=== PATIENT | female | born 1960 | race Caucasian/White ===

== ENCOUNTER → 2018-03-17 | Outpatient (CLI) | payer OTHER ==
[~2018-03-17] MED LIST: ALBUTEROL2.5 MG/0.5 INH; ALLERGY10 MG PO; ALPRAZOLAM0.5 MG PO; ASPRIN/BUTALBIT1 TAB; AUGMENTIN 875 M1 TAB PO; BAYER ASPIRIN325 MG PO; CALCIUM500 M1 PO; CALCIUM500 MG PO; CLARITIN10 MG PO; CRESTOR10 M1 PO; DIFLUCAN150 MG PO; DUONEB 3 MG/3 ML3 M1 INH; ELMIRON100 MG PO; Ecotrin325 MG PO; FLAGYL250 MG PO; FLOVENT DI250 MCG/Ac IH; FOSAMAX70 M1 PO; HYDROCODONE BIT1 T12 PO; HYDROCODONE/ACE1 TA9 PO; IMDUR ER30 MG PO; IMDUR SA30 MG PO; KENALOG 0.1%80 GM T; KENALOG0.11 TP; LEVOTHYROXINE0.1 M1 PO; LIPITOR; LIPITOR40 MG PO; LISINOPRIL5 MG PO; LOMOTIL 0.025 M1 TAB PO; LOPRESSOR25 MG PO; Lopressor25 MG PO; MEDROL DOSEPAK4 MG PO; MOTRIN600 MG PO; MOTRIN800 MG PO; MULTIPLE VITAMI1 T22 PO; NAPROSYN500 MG PO; NEURONTIN300 MG PO; NORCO 325 MG-51 TAB PO; PRAVACHOL10 MG PO; PRAVACHOL80 M1 PO; PRINIVIL5 MG PO; PROVENTIL0.09 MG/AC IH; SYNTHROID; SYNTHROID,LEV100 MCG PO; Synthroid,Levo50 MCG PO; TEMOVATE0.052 T; TRAMADOL HCL50 MG PO; TRIMOX500 MG PO; VENTOLIN H0.09 MG/AC INH; VICODIN 5/500 505 MG PO; VITAMIN B-12100 MCG PO; VITAMIN D-32000 UNI1 PO; VITAMIN D400 I1 PO; ZETIA10 MG PO; ZITHROMAX Z PA250 MG PO; Zofran4 MG PO; [UNRECOGNIZED DRUG - OTHER]
== END | disposition home or self-care (01) ==
LOC: US 03-10 04:09
DX: M79.605 Pain in left leg (principal); M79.604 Pain in right leg; I10 Essential (primary) hypertension; I70.213 Atherosclerosis of native arteries of extremities with intermittent claudication, bilateral legs

== ENCOUNTER 2019-05-31 15:19 | Emergency (ER) | payer OTHER ==
[~2019-05-31] VITALS: Ht 165.1 cm; Wt 83.0 kg
[2019-05-31 16:10] LABS: BILIRUBIN NEGATIVE (NEGATIVE); BLOOD NEGATIVE (NEGATIVE); CLARITY CLEAR (CLEAR); COLOR YELLOW (YELLOW); GLUCOSE NEGATIVE (NEGATIVE); KETONE NEGATIVE (NEGATIVE); LEUKO ESTERASE NEGATIVE (NEGATIVE); NITRITE NEGATIVE (NEGATIVE); SPECIFIC GRAVITY >= 1.030 (1.005-1.030); UROBILINOGEN 0.2 E.U./dl (0.2-1.0)
[2019-05-31 16:11] LABS: BASO % 0.6 % (0.0-1.0); EOS # 0.1 10*3/uL (0.0-0.4); EOS % 1.7 % (1.0-4.0); HEMATOCRIT 40.7 % (37.0-47.0); HEMOGLOBIN 13.8 g/dl (12.0-16.0); LYMPH # 1.2 10*3/uL (1.3-4.4); LYMPH % 18.3 % (27.0-41.0); MEAN CELL VOLUME 98.1 fl (81.0-99.0); MEAN CORPUSCULAR HGB 33.3 pg (27.0-31.0); MEAN CORPUSCULAR HGB CONC 33.9 g/dl (33.0-37.0); MEAN PLATELET VOLUME 9.2 fl (9.6-12.3); MONO # 0.8 10*3/uL (0.1-1.0); MONO % 11.5 % (3.0-9.0); NEUT # 4.4 10*3/uL (2.3-7.9); NEUT % 67.4 % (47.0-73.0); PLATELET COUNT AUTOMATED 202 10*3/uL (130-400); RED BLOOD COUNT 4.15 10*6/uL (4.10-5.10); WHITE BLOOD COUNT 6.5 10*3/uL (4.8-10.8)
[2019-05-31 16:18] LABS: BACTERIA TRACE; WBC 0-2 wbc/hpf (0-5)
[2019-05-31 16:22] LABS: INTERNATIONAL NORM RATIO 0.9 (2.0-3.5)
[2019-05-31 16:30] LABS: ALBUMIN 3.6 gm/dl (3.1-4.5); ALKALINE PHOSPHATASE 81 U/L (45-117); BUN 13 mg/dl (7-24); CHLORIDE 109 mmol/L (98-107); CREATININE 0.86 mg/dL (0.55-1.02); POTASSIUM 4.4 mmol/L (3.5-5.1); SGOT/AST 35 IU/L (3-35); SGPT/ALT 31 U/L (12-78); SODIUM 141 mmol/L (136-145); TOTAL PROTEIN 7.3 gm/dL (6.4-8.2)
[2019-05-31 16:37] LABS: TROPONIN I < 0.015 ng/ml (<0.045)
[2019-05-31 17:43] VITALS: BP 126/82
== END 2019-05-31 17:49 | disposition home or self-care (01) ==
LOC: ED 15:19
PROVIDERS: Physician Assistant
DX: R20.2 Paresthesia of skin (principal); R20.0 Anesthesia of skin; J44.9 Chronic obstructive pulmonary disease, unspecified; R79.1 Abnormal coagulation profile; F17.200 Nicotine dependence, unspecified, uncomplicated; Z79.899 Other long term (current) drug therapy; Z79.82 Long term (current) use of aspirin

== ENCOUNTER 2019-08-19 15:46 | Inpatient (IN) | payer OTHER ==
[~2019-08-19] VITALS: Ht 165.1 cm; Wt 82.7 kg
[2019-08-19] MEDS ORDERED: CYCLOBENZAPRINE10 MG PO (15:50)
[2019-08-19] MEDS ORDERED: ALPRAZOLAM0.5 M3 PO (15:50)
[2019-08-19] MEDS ORDERED: B121000 MCG/1 IM (15:51)
[2019-08-19 15:53] VITALS: BP 118/78
[2019-08-19 16:35] LABS: BASO % 0.5 % (0.0-1.0); EOS # 0.1 10*3/uL (0.0-0.4); EOS % 1.4 % (1.0-4.0); HEMATOCRIT 41.1 % (37.0-47.0); LYMPH # 0.9 10*3/uL (1.3-4.4); LYMPH % 13.2 % (27.0-41.0); MEAN CELL VOLUME 97.4 fl (81.0-99.0); MEAN CORPUSCULAR HGB 33.2 pg (27.0-31.0); MEAN CORPUSCULAR HGB CONC 34.1 g/dl (33.0-37.0); MEAN PLATELET VOLUME 9.4 fl (9.6-12.3); MONO % 15.8 % (3.0-9.0); NEUT # 4.5 10*3/uL (2.3-7.9); NEUT % 68.8 % (47.0-73.0); PLATELET COUNT AUTOMATED 180 10*3/uL (130-400); RED BLOOD COUNT 4.22 10*6/uL (4.10-5.10); RED CELL DISTRI WIDTH 12.5 % (0-14.5); WHITE BLOOD COUNT 6.5 10*3/uL (4.8-10.8)
[2019-08-19 16:46] LABS: ACT PARTIAL THROMBO TIME 23.8 SECONDS (20.0-32.1); INTERNATIONAL NORM RATIO 0.9 (2.0-3.5)
[2019-08-19 17:07] LABS: ALBUMIN 3.4 gm/dl (3.1-4.5); ALKALINE PHOSPHATASE 96 U/L (45-117); BUN 3 mg/dl (7-24); CHLORIDE 109 mmol/L (98-107); CREATININE 0.72 mg/dL (0.55-1.02); POTASSIUM 3.4 mmol/L (3.5-5.1); SGOT/AST 35 IU/L (3-35); SGPT/ALT 27 U/L (12-78); SODIUM 141 mmol/L (136-145); TOTAL PROTEIN 7.6 gm/dL (6.4-8.2)
[2019-08-19 17:08] LABS: TROPONIN I < 0.015 ng/ml (<0.045)
[2019-08-19] MEDS ORDERED: PROVENTIL HFA6.7 GM INH (17:19)
[2019-08-19] MEDS ORDERED: SPIRIVA -- 3018 MCG INH (17:19)
[2019-08-19] MEDS ORDERED: PREDNISONE50 MG PO (17:19)
[2019-08-19] MEDS ORDERED: AVPAK AZITHROM250 MG PO (17:19)
--- NOTE | 2019-08-19 18:25 | NUR ---
A 59, admitted to , under the services of PATRICIA Dozier DO with a diagnosis of COPD EXACERBATION. Chief complaint is SOB, WHEEZING. Patient arrived via ambulatory from ER. Monitor applied. Initial assessment completed. Vital signs taken and recorded. PATRICIA DOZIER DO notified of admission to the unit. Orders received. See assessment for past medical history, medications and allergies. Patient and/or family oriented to unit. [facility] visitation policy reviewed. Clothing/patient valuable form completed. HARINDER BARRON
--- NOTE | 2019-08-19 18:58 | NUR ---
CALLED DR. HARTLEY AWARE PT MEDICATIONS ARE VERIFIED AND NEED ORDERED.
[2019-08-19 20:00] VITALS: BP 121/83
[2019-08-20] VITALS (8 sets, daily range): BP systolic 80–122; BP diastolic 42–86
[2019-08-20 06:34] LABS: HEMATOCRIT 39.9 % (37.0-47.0); HEMOGLOBIN 13.3 g/dl (12.0-16.0); LYMPH # 0.5 10*3/uL (1.3-4.4); LYMPH % 10.3 % (27.0-41.0); MEAN CELL VOLUME 98.8 fl (81.0-99.0); MEAN CORPUSCULAR HGB 32.9 pg (27.0-31.0); MEAN CORPUSCULAR HGB CONC 33.3 g/dl (33.0-37.0); MONO # 0.2 10*3/uL (0.1-1.0); MONO % 2.9 % (3.0-9.0); NEUT # 4.5 10*3/uL (2.3-7.9); NEUT % 86.2 % (47.0-73.0); PLATELET COUNT AUTOMATED 196 10*3/uL (130-400); RED BLOOD COUNT 4.04 10*6/uL (4.10-5.10); RED CELL DISTRI WIDTH 12.4 % (0-14.5); WHITE BLOOD COUNT 5.2 10*3/uL (4.8-10.8)
[2019-08-20 06:41] LABS: ALBUMIN 3.1 gm/dl (3.1-4.5); ALKALINE PHOSPHATASE 83 U/L (45-117); BUN 6 mg/dl (7-24); CHLORIDE 112 mmol/L (98-107); CHOLESTEROL 181 mg/dL (<200); CREATININE 0.67 mg/dL (0.55-1.02); HDL CHOLESTEROL 54 mg/dl (40-60); LDL CHOLESTEROL 111 mg/dL (9-159); PHOSPHOROUS 2.2 mg/dL (2.5-4.9); POTASSIUM 3.6 mmol/L (3.5-5.1); SGOT/AST 23 IU/L (3-35); SGPT/ALT 26 U/L (12-78); SODIUM 141 mmol/L (136-145); TOTAL PROTEIN 7.2 gm/dL (6.4-8.2); TRIGLYCERIDES 80 mg/dl (<150); VLDL CHOLESTEROL 16 mg/dL (6-40)
[2019-08-20 06:46] LABS: FREE T4 1.06 ng/dl (0.76-1.46)
[2019-08-20 07:26] LABS: VITAMIN D, 25-HYDROXY 32.8 ng/mL (30-100)
--- NOTE | 2019-08-20 07:56 | NUR ---
PT RESTING IN BED, RECIEVING BREATHING TREATMENT. MORNING ASSESSMENT COMPLETE. NO VOICED COMPLAINTS AT THIS TIME. DAVID DICKINSON BLANCA
--- NOTE | 2019-08-20 09:00 | NUR ---
Commercial Subcontractor in to talk to patient. Patient states lives at home with mother and granddon. There are few steps in the home. Physician: smita laurent [facility]acy: [facility] Home health services: none Patient's level of ADLs: INDEPENDENT Patient has working utilities: all working DME: none Follow-up physician's appointment after d/c: will be made by hospitalist nurse director upon discharge Does patient want to access PORTAL?: no Discharge plan discussed with patient, she states she lives at home with her mom and grandson, she is indepenendent in adls and ambulation, drives, she states she will return home when medically stable and denies any home needs. JOI GRIFFIN
--- NOTE | 2019-08-20 10:06 | NUR ---
PT SITTING UP IN BED EATING BREAKFAST. PT BEING MOVED TO 5TH FLOOR VIA WHEELCHAIR ACCOMPANIED BY SN. DAVID DIXON
--- NOTE | 2019-08-20 10:09 | NUR ---
TRANSFERRED TO [facility]'2
--- NOTE | 2019-08-20 11:29 | NUR ---
ON FLOOR AND NOTIFIED OF CONSULT.
--- NOTE | 2019-08-20 17:51 | NUR ---
PATIENTS PULSE OX RANGING BETWEEN 89-90% ON 4LNC. LUNGS DIMINISHED T/O. THIS NURSE SPOKE WITH RESPIRATORY THERAPIST. 02 INCREASED TO 5LNC. POX 90-92%. PATIENT ENCOURAGED TO UTILIZE INCENTIVE SPIROMETER. WILL CONTINUE TO MONITOR. NOTIED AT THIS TIME. NO NEW ORDERS.
--- NOTE | 2019-08-20 20:23 | NUR ---
PT SAT IS 89% ON 5L NC. PLACED ON 8L HFNC AND SAT IS NOW 92% WILL CONTINUE TO MONITOR SpO2.
--- NOTE | 2019-08-20 20:27 | NUR ---
DR BARBOUR MADE AWARE OF BLOOD PRESSURE 80/42 AND PULSE OX 90% ON HIGH FLOW 8L. STATES TO HOLD CARDIAC MEDS TONIHGT, BOLUS 500CC NS AND RECHECK BLOOD PRESSURE AT 9. PATIENT DENIES DIZZINESS OR LIGHT HEADEDNESS
--- NOTE | 2019-08-20 21:25 | NUR ---
DR BARBOUR AWARE OF REPEAT BLOOD PRESSURE 86/52
--- NOTE | 2019-08-20 22:26 | NUR ---
DR BARBOUR AWARE OF BLOOD PRESSURE 90/50. STATES TO HOLD THE SCHEDULED XANAX AND FLEXERIL FOR ANOTHER HOUR UNTIL BLOOD PRESSURE IS REASSESSED
[2019-08-21] VITALS: BP 106/63
--- NOTE | 2019-08-21 03:35 | NUR ---
Patient resting quietly with no c/o discomfort. Respirations easy and regular. Vital signs stable. No overt distress. WINSTON NEGRO
[2019-08-21 08:00] VITALS: BP 129/80
--- NOTE | 2019-08-21 09:00 | NUR ---
case management visits with patient, patient states she will return home when medically stable, patient continues to receive iv antibiotics, iv steroids and oxygen was increased yesterday to high flow at 8l. case management will continue to follow
--- NOTE | 2019-08-21 10:58 | NUR ---
RAIL LOADER received voicemail from [facility] [employer] Genia -[phone]. RAIL LOADER returned call to [facility] voicemail and left a message. -KRISTOPHER Dupree
[2019-08-21 12:00] VITALS: BP 124/72
[2019-08-21 14:14] LABS: BASO % 0.1 % (0.0-1.0); HEMOGLOBIN 12.2 g/dl (12.0-16.0); LYMPH # 0.7 10*3/uL (1.3-4.4); LYMPH % 5.1 % (27.0-41.0); MEAN PLATELET VOLUME 9.6 fl (9.6-12.3); MONO # 1.2 10*3/uL (0.1-1.0); NEUT # 11.5 10*3/uL (2.3-7.9); NEUT % 84.9 % (47.0-73.0); PLATELET COUNT AUTOMATED 249 10*3/uL (130-400); RED CELL DISTRI WIDTH 13.1 % (0-14.5); WHITE BLOOD COUNT 13.6 10*3/uL (4.8-10.8)
[2019-08-21 14:29] LABS: ALKALINE PHOSPHATASE 70 U/L (45-117); BUN 11 mg/dl (7-24); CHLORIDE 111 mmol/L (98-107); CREATININE 0.69 mg/dL (0.55-1.02); POTASSIUM 3.6 mmol/L (3.5-5.1); SGOT/AST 21 IU/L (3-35); SGPT/ALT 24 U/L (12-78); SODIUM 142 mmol/L (136-145); TOTAL PROTEIN 6.9 gm/dL (6.4-8.2)
[2019-08-21 16:00] VITALS: BP 109/72
[2019-08-21 20:00] VITALS: BP 106/56
--- NOTE | 2019-08-21 21:49 | NUR ---
SPOKE WITH DR JOHNSON REGARDING PTS BEDTIME BLOOD PRESSURE MEDICATIONS. BP 100/60 MANUALLY. STATES TO HOLD THE LISINOPRIL AND ADMINISTER METOPROLOL ORDERED HEART RATE IS 106.
[2019-08-22] VITALS: BP 122/83
--- NOTE | 2019-08-22 03:57 | NUR ---
24 HR chart check completed.
--- NOTE | 2019-08-22 06:39 | NUR ---
IN SHIFT REPORT IT WAS BROUGHT TO MY ATTENTION PATIENT HAD REFUSED TO HAVE AN ARTERIAL BLOOD GAS DRAWN. NO OTHER INFORMATION ON THE SITUATION.
--- NOTE | 2019-08-22 07:00 | NUR ---
PATIENT ASKED ABOUT ARTERIAL BLOOD GAS AGAIN THIS MORNING. SHE IS STILL REFUSING TO HAVE IT DRAWN. " MY OXYGEN HAS BEEN 93, SO I DONT NEED IT. THEY HURT REALLY BAD."
[2019-08-22 08:00] VITALS: BP 141/85
--- NOTE | 2019-08-22 09:00 | NUR ---
case management visits with patient, she denies any home needs at this time, she continues on nasla o2 at 5l. current treatment of oxygen, iv antibiotics and steroids continues, case management will follow
[2019-08-22 12:00] VITALS: BP 128/82
[2019-08-22 16:00] VITALS: BP 109/75
[2019-08-22 20:00] VITALS: BP 115/69
--- NOTE | 2019-08-22 20:05 | NUR ---
SURGERY PACKET COMPLETED AND ON CHART.
--- NOTE | 2019-08-22 21:45 | NUR ---
SPOKE WITH DR BARBOUR, PER HIS ORDER WILL HOLD LISINOPRIL AND GIVE LOPRESSOR ORDERED. BP 110/68 MANUALLY AND PULSE 105.
[2019-08-23] VITALS (9 sets, daily range): BP systolic 119–150; BP diastolic 73–93
[2019-08-23 00:09] LABS: ADENOVIRUS Negative (Negative); INFLUENZA A Negative (Negative); INFLUENZA B Negative (Negative); METAPNEUMOVIRUS Negative (Negative); PARAINFLUENZA 1 Negative (Negative); PARAINFLUENZA 2 Negative (Negative); PARAINFLUENZA 3 Negative (Negative); RHINOVIRUS Negative (Negative); RSV A Negative (Negative); RSV B Negative (Negative)
--- NOTE | 2019-08-23 08:24 | NUR ---
PT RESTING IN BED. NO DISTRESS NOTED. WILL MONITOR
--- NOTE | 2019-08-23 09:00 | NUR ---
case management attempted to visit with patient, she is out of room for procedure, case management will follow
--- NOTE | 2019-08-23 20:00 | NUR ---
AMBULATING HALLWAY WITH RESPIRATORY
--- NOTE | 2019-08-23 20:08 | NUR ---
Patient does not qualify for home oxygen use. Pre-Ambulation: SPO2 - 97% on 6L, HR - 120, BP - 120/76 Ambulation : SPO2 91%-95%, HR 120-133 Post-Ambulation: SPO2 91% on RA, HR 126, BP 132/90
--- NOTE | 2019-08-23 21:00 | NUR ---
RESTING IN BED WATCHING TV WITH NO DISTRESS NOTED. RESPIRATIONS EASY. LUNGS DIMINISHED WITH I&E WHEEZES. PULSE OX 95% 5L, O2 REMOVED BY RESP - WILL RE-EVAL. CLAIMS COUGH PROD FOR YELLOW. CALL LIGHT WITHIN REACH. NO VOICED COMPLAINTS
[2019-08-24] VITALS: BP 127/93; BP 128/82
--- NOTE | 2019-08-24 | NUR ---
REMAINS AWAKE. RESPIRATIONS EASY. VSS. PULSE OX 92% RA. CALL LIGHT WITHIN REACH. NO VOICED COMPLAINTS
[2019-08-24] MEDS ORDERED: LEVOTHYROXINE175 MCG PO (01:25)
--- NOTE | 2019-08-24 01:40 | NUR ---
24 HR chart check completed.
--- NOTE | 2019-08-24 06:00 | NUR ---
RESTED THROUGHOUT NIGHT WITH NO ACUTE DISTRESS NOTED. RESPIRATIONS EASY. AWAKE, SITTING UP IN BED. CALL LIGHT WITHI REACH. NO VOICED COMPLAINTS THIS SHIFT
--- NOTE | 2019-08-24 07:49 | NUR ---
PT RESTING IN BED/ NO DISTRESS NOTED./ WILL MONITOR
[2019-08-24 08:00] VITALS: BP 144/91
[2019-08-24 12:00] VITALS: BP 116/82
--- NOTE | 2019-08-24 13:20 | NUR ---
dr viramontes notified of dr beena marc with pt being dc today
[2019-08-24] MEDS ORDERED: DOXYCYCLINE100 M3 PO (14:08)
[2019-08-24] MEDS ORDERED: PREDNISONE10 MG PO (14:08)
[2019-08-24] MEDS ORDERED: FLUCONAZOLE100 MG PO (14:08)
--- NOTE | 2019-08-24 14:11 | NUR ---
Answered questions with Genia patient's [facility] rn case mgr regarding discharge plans.
--- NOTE | 2019-08-24 15:15 | NUR ---
Discharge instructions reviewed with patient/family. Patient receptive and verbalizes understanding. Follow-up care arranged. Written instructions given to patient/family. GALILEA MATIAS
[2019-08-24 17:06] LABS: ACID FAST SPEC PROCESSING Concentration (.)
== END 2019-08-24 15:15 | disposition home or self-care (01) | DRG 871 ==
LOC: ED 15:46 → EDHOLD 17:35 → 5E 17:35 → 4E 18:16 → 5E 08-20 10:07
PROVIDERS: Emergency Medicine; Internal Medicine; Internal Medicine Critical Care Medicine; ADMIT Internal Medicine
PROC: 0BC18ZZ Extirpation of Matter from Trachea, Via Natural or Artificial Opening Endoscopic (ICD-10-PCS; principal; 2019-08-23)
PROC: 0BC48ZZ Extirpation of Matter from Right Upper Lobe Bronchus, Via Natural or Artificial Opening Endoscopic (ICD-10-PCS; principal; 2019-08-23)
PROC: 0BC88ZZ Extirpation of Matter from Left Upper Lobe Bronchus, Via Natural or Artificial Opening Endoscopic (ICD-10-PCS; principal; 2019-08-23)
PROC: 0BC98ZZ Extirpation of Matter from Lingula Bronchus, Via Natural or Artificial Opening Endoscopic (ICD-10-PCS; principal; 2019-08-23)
PROC: 0BCB8ZZ Extirpation of Matter from Left Lower Lobe Bronchus, Via Natural or Artificial Opening Endoscopic (ICD-10-PCS; principal; 2019-08-23)
PROC: 0BC58ZZ Extirpation of Matter from Right Middle Lobe Bronchus, Via Natural or Artificial Opening Endoscopic (ICD-10-PCS; principal; 2019-08-23)
PROC: 0BC38ZZ Extirpation of Matter from Right Main Bronchus, Via Natural or Artificial Opening Endoscopic (ICD-10-PCS; principal; 2019-08-23)
PROC: 0BC68ZZ Extirpation of Matter from Right Lower Lobe Bronchus, Via Natural or Artificial Opening Endoscopic (ICD-10-PCS; principal; 2019-08-23)
PROC: 0BC78ZZ Extirpation of Matter from Left Main Bronchus, Via Natural or Artificial Opening Endoscopic (ICD-10-PCS; principal; 2019-08-23)
DX: A41.9 Sepsis, unspecified organism (principal); J18.9 Pneumonia, unspecified organism; J96.21 Acute and chronic respiratory failure with hypoxia; J44.1 Chronic obstructive pulmonary disease with (acute) exacerbation; E44.1 Mild protein-calorie malnutrition; J44.0 Chronic obstructive pulmonary disease with (acute) lower respiratory infection; J45.41 Moderate persistent asthma with (acute) exacerbation; E87.6 Hypokalemia; E87.8 Other disorders of electrolyte and fluid balance, not elsewhere classified; J20.9 Acute bronchitis, unspecified; E83.41 Hypermagnesemia; F17.210 Nicotine dependence, cigarettes, uncomplicated; I25.10 Atherosclerotic heart disease of native coronary artery without angina pectoris; E03.9 Hypothyroidism, unspecified; E78.5 Hyperlipidemia, unspecified; G89.29 Other chronic pain; M54.9 Dorsalgia, unspecified; K44.9 Diaphragmatic hernia without obstruction or gangrene; Z71.6 Tobacco abuse counseling; Z82.49 Family history of ischemic heart disease and other diseases of the circulatory system; Z83.3 Family history of diabetes mellitus; Z82.3 Family history of stroke; Z98.51 Tubal ligation status; Z68.29 Body mass index [BMI] 29.0-29.9, adult

== ENCOUNTER 2019-11-12 15:08 | Inpatient (IN) | payer OTHER ==
[~2019-11-12] VITALS: Ht 167.6 cm; Wt 82.6 kg
[~2019-11-12 15:08] MED LIST changes: +ALPRAZOLAM0.5 M3 PO; +AVPAK AZITHROM250 MG PO; +B121000 MCG/1 IM; +CYCLOBENZAPRINE10 MG PO; +DOXYCYCLINE100 M3 PO; +FLUCONAZOLE100 MG PO; +LEVOTHYROXINE175 MCG PO; +PREDNISONE10 MG PO; +PREDNISONE50 MG PO; +PROVENTIL HFA6.7 GM INH; +SPIRIVA -- 3018 MCG INH
[2019-11-12 15:16] VITALS: BP 117/77
[2019-11-12 16:00] VITALS: BP 128/78
[2019-11-12 16:22] LABS: BASO % 0.6 % (0.0-1.0); EOS % 0.2 % (1.0-4.0); HEMATOCRIT 37.7 % (37.0-47.0); HEMOGLOBIN 12.8 g/dl (12.0-16.0); LYMPH # 0.6 10*3/uL (1.3-4.4); LYMPH % 11.3 % (27.0-41.0); MEAN CELL VOLUME 95.4 fl (81.0-99.0); MEAN CORPUSCULAR HGB 32.4 pg (27.0-31.0); MEAN PLATELET VOLUME 10.7 fl (9.6-12.3); MONO # 0.8 10*3/uL (0.1-1.0); MONO % 15.8 % (3.0-9.0); NEUT # 3.8 10*3/uL (2.3-7.9); NEUT % 71.9 % (47.0-73.0); PLATELET COUNT AUTOMATED 222 10*3/uL (130-400); RED BLOOD COUNT 3.95 10*6/uL (4.10-5.10); RED CELL DISTRI WIDTH 12.8 % (0-14.5); WHITE BLOOD COUNT 5.3 10*3/uL (4.8-10.8)
[2019-11-12 16:39] LABS: ACT PARTIAL THROMBO TIME 20.8 SECONDS (20.0-32.1); INTERNATIONAL NORM RATIO 0.9 (2.0-3.5)
[2019-11-12 17:16] LABS: ALBUMIN 3.5 gm/dl (3.1-4.5); ALKALINE PHOSPHATASE 91 U/L (45-117); BUN 7 mg/dl (7-24); CHLORIDE 106 mmol/L (98-107); CREATININE 0.82 mg/dL (0.55-1.02); POTASSIUM 3.5 mmol/L (3.5-5.1); SGOT/AST 24 IU/L (3-35); SGPT/ALT 25 U/L (12-78); SODIUM 138 mmol/L (136-145); TOTAL PROTEIN 6.9 gm/dL (6.4-8.2); TROPONIN I < 0.015 ng/ml (<0.045)
[2019-11-12 18:27] VITALS: BP 109/69
[2019-11-12 20:00] VITALS: BP 139/86
[2019-11-13] VITALS: BP 115/75
[2019-11-13 07:24] LABS: HEMATOCRIT 35.8 % (37.0-47.0); HEMOGLOBIN 11.9 g/dl (12.0-16.0); LYMPH # 0.4 10*3/uL (1.3-4.4); MEAN CORPUSCULAR HGB 31.9 pg (27.0-31.0); MEAN CORPUSCULAR HGB CONC 33.2 g/dl (33.0-37.0); MEAN PLATELET VOLUME 10.3 fl (9.6-12.3); MONO # 0.1 10*3/uL (0.1-1.0); MONO % 5.3 % (3.0-9.0); NEUT % 79.3 % (47.0-73.0); PLATELET COUNT AUTOMATED 208 10*3/uL (130-400); RED BLOOD COUNT 3.73 10*6/uL (4.10-5.10); RED CELL DISTRI WIDTH 12.9 % (0-14.5); WHITE BLOOD COUNT 2.5 10*3/uL (4.8-10.8)
[2019-11-13 07:32] LABS: ACT PARTIAL THROMBO TIME 24.5 SECONDS (20.0-32.1); INTERNATIONAL NORM RATIO 0.9 (2.0-3.5)
[2019-11-13 07:43] LABS: ALBUMIN 2.9 gm/dl (3.1-4.5); BUN 5 mg/dl (7-24); CHLORIDE 115 mmol/L (98-107); POTASSIUM 3.5 mmol/L (3.5-5.1); SODIUM 144 mmol/L (136-145)
[2019-11-13 07:52] LABS: ALKALINE PHOSPHATASE 80 U/L (45-117); CHOLESTEROL 156 mg/dL (<200); FREE T4 1.15 ng/dl (0.76-1.46); HDL CHOLESTEROL 66 mg/dl (40-60); LDL CHOLESTEROL 87 mg/dL (9-159); PHOSPHOROUS 2.4 mg/dL (2.5-4.9); SGOT/AST 20 IU/L (3-35); SGPT/ALT 23 U/L (12-78); THYROID STIM HORMONE (HS) 0.077 uIU/ml (0.358-4.75); TOTAL PROTEIN 6.4 gm/dL (6.4-8.2); TRIGLYCERIDES 17 mg/dl (<150); VLDL CHOLESTEROL 3 mg/dL (6-40)
[2019-11-13 08:00] VITALS: BP 138/96
[2019-11-13 08:29] LABS: VITAMIN D, 25-HYDROXY 30.5 ng/mL (30-100)
[2019-11-13 12:00] VITALS: BP 122/78
[2019-11-13 16:00] VITALS: BP 122/62
[2019-11-13 20:00] VITALS: BP 113/77
[2019-11-14] VITALS: BP 118/82
[2019-11-14 07:38] VITALS: BP 130/86
[2019-11-14 11:53] VITALS: BP 110/76
[2019-11-14 16:00] VITALS: BP 121/68
[2019-11-14 20:00] VITALS: BP 132/82
[2019-11-15] VITALS: BP 132/91
[2019-11-15 08:00] VITALS: BP 152/94
[2019-11-15 12:00] VITALS: BP 150/88
[2019-11-15 16:00] VITALS: BP 128/78
[2019-11-15 20:00] VITALS: BP 123/76
[2019-11-16] VITALS: BP 129/75
[2019-11-16 06:56] LABS: BUN 14 mg/dl (7-24); CHLORIDE 108 mmol/L (98-107); CREATININE 0.75 mg/dL (0.55-1.02); POTASSIUM 3.8 mmol/L (3.5-5.1); SODIUM 142 mmol/L (136-145)
[2019-11-16 08:00] VITALS: BP 147/75
[2019-11-16] MEDS ORDERED: LEADER ASPIRIN325 MG PO (08:42)
[2019-11-16] MEDS ORDERED: MUCINEX ER600 MG PO (08:42)
[2019-11-16] MEDS ORDERED: PREDNISONE10 MG PO (08:42)
[2019-11-19 18:04] LABS: ADENOVIRUS Negative (Negative); INFLUENZA A Positive (Negative); INFLUENZA B Negative (Negative); METAPNEUMOVIRUS Negative (Negative); PARAINFLUENZA 1 Negative (Negative); PARAINFLUENZA 2 Negative (Negative); PARAINFLUENZA 3 Negative (Negative); RHINOVIRUS Negative (Negative); RSV A Negative (Negative); RSV B Negative (Negative)
== END 2019-11-16 11:19 | disposition home or self-care (01) | DRG 871 ==
LOC: ED 15:08 → 4E 18:07 → EDHOLD 18:07 → 4E 18:25
PROVIDERS: Emergency Medicine; Internal Medicine; Internal Medicine Critical Care Medicine; ADMIT Internal Medicine
DX: A41.9 Sepsis, unspecified organism (principal); J15.6 Pneumonia due to other Gram-negative bacteria; J44.1 Chronic obstructive pulmonary disease with (acute) exacerbation; J44.0 Chronic obstructive pulmonary disease with (acute) lower respiratory infection; E44.1 Mild protein-calorie malnutrition; J45.901 Unspecified asthma with (acute) exacerbation; J96.11 Chronic respiratory failure with hypoxia; R65.20 Severe sepsis without septic shock; I25.10 Atherosclerotic heart disease of native coronary artery without angina pectoris; E78.5 Hyperlipidemia, unspecified; E03.9 Hypothyroidism, unspecified; M54.9 Dorsalgia, unspecified; G89.29 Other chronic pain; Z68.29 Body mass index [BMI] 29.0-29.9, adult; Z79.899 Other long term (current) drug therapy; Z79.82 Long term (current) use of aspirin; Z98.51 Tubal ligation status; Z82.49 Family history of ischemic heart disease and other diseases of the circulatory system; Z83.3 Family history of diabetes mellitus; Z87.891 Personal history of nicotine dependence

== ENCOUNTER → 2020-10-31 | Outpatient (CLI) | payer OTHER ==
[~2020-10-31] MED LIST changes: +LEADER ASPIRIN325 MG PO; +MUCINEX ER600 MG PO
== END | disposition home or self-care (01) ==
LOC: RAD 14:50
PROVIDERS: ATTEND Family Medicine
DX: J20.9 Acute bronchitis, unspecified (principal)

== ENCOUNTER → 2020-11-18 | Outpatient (CLI) | payer OTHER ==
[2020-11-18 15:39] LABS: BASO % 0.5 % (0.0-1.0); EOS # 0.1 10*3/uL (0.0-0.4); HEMATOCRIT 41.5 % (37.0-47.0); LYMPH # 1.7 10*3/uL (1.3-4.4); LYMPH % 23.2 % (27.0-41.0); MEAN CORPUSCULAR HGB 31.4 pg (27.0-31.0); MEAN CORPUSCULAR HGB CONC 33.7 g/dl (33.0-37.0); MEAN PLATELET VOLUME 9.2 fl (9.6-12.3); MONO # 0.9 10*3/uL (0.1-1.0); MONO % 12.6 % (3.0-9.0); NEUT # 4.6 10*3/uL (2.3-7.9); NEUT % 62.4 % (47.0-73.0); PLATELET COUNT AUTOMATED 278 10*3/uL (130-400); RED BLOOD COUNT 4.46 10*6/uL (4.10-5.10); RED CELL DISTRI WIDTH 12.6 % (0-14.5); RETICULOCYTE % 1.17 % (0.50-2.50); WHITE BLOOD COUNT 7.3 10*3/uL (4.8-10.8)
[2020-11-18 15:59] LABS: ALBUMIN 3.5 gm/dl (3.1-4.5); BUN 7 mg/dl (7-24); CHLORIDE 104 mmol/L (98-107); GAMMA GLUTAMYL TRANSPEPTIDASE 177 U/L (5-55); POTASSIUM 3.8 mmol/L (3.5-5.1); SODIUM 139 mmol/L (136-145)
[2020-11-18 16:11] LABS: ALKALINE PHOSPHATASE 108 U/L (45-117); CHOLESTEROL 218 mg/dL (<200); CPK 39 U/L (26-192); CREATININE 0.72 mg/dL (0.55-1.02); HDL CHOLESTEROL 81 mg/dl (40-60); IRON 113 ug/dL (50-170); LDL CHOLESTEROL 110 mg/dL (9-159); SGOT/AST 55 IU/L (3-35); SGPT/ALT 53 U/L (12-78); T3 UPTAKE 35 % (31-39); THYROID STIM HORMONE (HS) 0.006 uIU/ml (0.358-4.75); THYROXINE (T4) TOTAL 10.3 ug/dl (4.8-13.9); TOTAL IRON BINDING CAPACITY 353 ug/dl (250-450); TOTAL PROTEIN 7.3 gm/dL (6.4-8.2); TRIGLYCERIDES 135 mg/dl (<150); VLDL CHOLESTEROL 27 mg/dL (6-40)
[2020-11-18 17:14] LABS: VITAMIN D, 25-HYDROXY 26.7 ng/mL (30-100)
[2020-11-18 17:15] LABS: FERRITIN 63.1 ng/mL (10.0-291.0)
== END | disposition home or self-care (01) ==
LOC: US 13:30 → LAB 13:47
PROVIDERS: Family Medicine; ATTEND Obstetrics & Gynecology
DX: Z12.31 Encounter for screening mammogram for malignant neoplasm of breast (principal); E78.5 Hyperlipidemia, unspecified; E55.9 Vitamin D deficiency, unspecified; N85.8 Other specified noninflammatory disorders of uterus; N64.89 Other specified disorders of breast

== ENCOUNTER → 2021-05-13 | Outpatient (CLI) | payer OTHER | END | disposition home or self-care (01) | LOC: US 00:10 | PROVIDERS: ATTEND Family Medicine | DX: I73.9 Peripheral vascular disease, unspecified (principal) ==

== ENCOUNTER → 2021-07-07 | Outpatient (CLI) | payer OTHER | END | disposition home or self-care (01) | LOC: RAD 17:03 | PROVIDERS: ATTEND Chiropractor Orthopedic | DX: M43.16 Spondylolisthesis, lumbar region (principal); M51.37 Other intervertebral disc degeneration, lumbosacral region ==

== ENCOUNTER → 2021-07-14 | Outpatient (CLI) | payer OTHER | END | disposition home or self-care (01) | LOC: RAD 10:38 | PROVIDERS: ATTEND Chiropractor Orthopedic | DX: M51.37 Other intervertebral disc degeneration, lumbosacral region (principal); M43.16 Spondylolisthesis, lumbar region ==

== ENCOUNTER → 2022-06-30 | Outpatient (CLI) | payer OTHER ==
[2022-06-30 12:31] LABS: BASO % 0.6 % (0.0-1.0); EOS # 0.1 10*3/uL (0.0-0.4); EOS % 2.2 % (1.0-4.0); HEMATOCRIT 42.1 % (37.0-47.0); LYMPH # 1.3 10*3/uL (1.3-4.4); LYMPH % 23.4 % (27.0-41.0); MEAN CELL VOLUME 89.8 fl (81.0-99.0); MEAN CORPUSCULAR HGB 29.6 pg (27.0-31.0); MEAN PLATELET VOLUME 9.3 fl (9.6-12.3); MONO # 0.5 10*3/uL (0.1-1.0); MONO % 9.5 % (3.0-9.0); NEUT # 3.4 10*3/uL (2.3-7.9); NEUT % 64.1 % (47.0-73.0); PLATELET COUNT AUTOMATED 269 10*3/uL (130-400); RED BLOOD COUNT 4.69 10*6/uL (4.10-5.10); RED CELL DISTRI WIDTH 12.4 % (0-14.5); RETICULOCYTE % 0.89 % (0.50-2.50); WHITE BLOOD COUNT 5.4 10*3/uL (4.8-10.8)
[2022-06-30 12:50] LABS: BUN 7 mg/dl (7-24); CHLORIDE 108 mmol/L (98-107); CHOLESTEROL 181 mg/dL (<200); GAMMA GLUTAMYL TRANSPEPTIDASE 39 U/L (5-55); POTASSIUM 4.6 mmol/L (3.5-5.1); SODIUM 140 mmol/L (136-145); TRIGLYCERIDES 107 mg/dl (<150)
[2022-06-30 13:01] LABS: ALKALINE PHOSPHATASE 89 U/L (45-117); CREATININE 0.68 mg/dL (0.55-1.02); IRON 130 ug/dL (50-170); LDL CHOLESTEROL 104 mg/dL (9-159); SGOT/AST 21 IU/L (3-35); SGPT/ALT 27 U/L (12-78); THYROID STIM HORMONE (HS) < 0.005 uIU/ml (0.358-4.75); TOTAL PROTEIN 7.1 gm/dL (6.4-8.2)
[2022-06-30 13:31] LABS: FERRITIN 43.2 ng/mL (10.0-291.0); VITAMIN D, 25-HYDROXY 33.6 ng/mL (30-100)
== END | disposition home or self-care (01) ==
LOC: LAB 11:58
PROVIDERS: ATTEND Family Medicine
DX: E78.5 Hyperlipidemia, unspecified (principal); E55.9 Vitamin D deficiency, unspecified; R79.89 Other specified abnormal findings of blood chemistry; R53.83 Other fatigue; R74.8 Abnormal levels of other serum enzymes

== ENCOUNTER 2022-08-09 15:39 | Emergency (ER) | payer OTHER ==
[~2022-08-09] VITALS: Ht 167.6 cm; Wt 82.6 kg
[2022-08-09 22:20] VITALS: BP 126/72
== END 2022-08-09 22:52 | disposition short-term general hospital (02) ==
LOC: ED 15:39
DX: S02.652A Fracture of angle of left mandible, initial encounter for closed fracture (principal); Z79.899 Other long term (current) drug therapy; Z79.82 Long term (current) use of aspirin; Z98.51 Tubal ligation status; Z98.890 Other specified postprocedural states; Z87.891 Personal history of nicotine dependence; W11.XXXA Fall on and from ladder, initial encounter; Y93.89 Activity, other specified; Y92.89 Other specified places as the place of occurrence of the external cause; Y99.8 Other external cause status

== ENCOUNTER 2022-08-16 19:37 | Emergency (ER) | payer OTHER ==
[~2022-08-16] VITALS: Ht 167.6 cm; Wt 80.7 kg
[2022-08-16 20:23] VITALS: BP 109/79
[2022-08-16] MEDS ORDERED: BENZONATATE100 M1 PO (21:45)
== END 2022-08-16 21:52 | disposition home or self-care (01) ==
LOC: ED 19:37
DX: B34.9 Viral infection, unspecified (principal); J44.9 Chronic obstructive pulmonary disease, unspecified; Z79.899 Other long term (current) drug therapy; Z98.51 Tubal ligation status; Z98.890 Other specified postprocedural states; Z87.891 Personal history of nicotine dependence

== ENCOUNTER 2022-11-22 10:41 | Emergency (ER) | payer OTHER ==
[~2022-11-22] VITALS: Ht 167.6 cm; Wt 81.6 kg
[~2022-11-22 10:41] MED LIST changes: +BENZONATATE100 M1 PO
[2022-11-22 11:00] VITALS: BP 115/65
[2022-11-22 12:10] LABS: BASO % 0.7 % (0.0-1.0); EOS # 0.1 10*3/uL (0.0-0.4); EOS % 2.4 % (1.0-4.0); HEMATOCRIT 38.8 % (37.0-47.0); LYMPH # 1.1 10*3/uL (1.3-4.4); LYMPH % 25.1 % (27.0-41.0); MEAN CORPUSCULAR HGB 30.2 pg (27.0-31.0); MEAN CORPUSCULAR HGB CONC 34.3 g/dl (33.0-37.0); MEAN PLATELET VOLUME 9.6 fl (9.6-12.3); MONO # 0.5 10*3/uL (0.1-1.0); NEUT # 2.8 10*3/uL (2.3-7.9); NEUT % 60.6 % (47.0-73.0); PLATELET COUNT AUTOMATED 234 10*3/uL (130-400); RED BLOOD COUNT 4.41 10*6/uL (4.10-5.10); RED CELL DISTRI WIDTH 13.8 % (0-14.5); WHITE BLOOD COUNT 4.6 10*3/uL (4.8-10.8)
[2022-11-22 12:21] LABS: ACT PARTIAL THROMBO TIME 24.8 SECONDS (20.0-32.1)
[2022-11-22 12:27] LABS: ALKALINE PHOSPHATASE 83 U/L (46-116); BUN 6 mg/dl (9-23); CHLORIDE 110 mmol/L (98-107); LIPASE 29 U/L (12-53); POTASSIUM 4.1 mmol/L (3.4-5.1); SGPT/ALT 12 U/L (10-49); TOTAL PROTEIN 6.6 gm/dL (6.0-8.0)
== END 2022-11-22 14:39 | disposition home or self-care (01) ==
LOC: ED 10:41
PROVIDERS: Physician Assistant
DX: R10.32 Left lower quadrant pain (principal); Z79.899 Other long term (current) drug therapy; Z98.51 Tubal ligation status; Z98.890 Other specified postprocedural states; Z87.891 Personal history of nicotine dependence

== ENCOUNTER → 2022-11-26 | Outpatient (CLI) | payer OTHER | END | disposition home or self-care (01) | LOC: US 00:57 | PROVIDERS: ATTEND Family Medicine | DX: N88.8 Other specified noninflammatory disorders of cervix uteri (principal); R10.84 Generalized abdominal pain; R10.2 Pelvic and perineal pain ==

== ENCOUNTER → 2022-12-13 | Day surgery (SDC) | payer OTHER ==
[~2022-12-13] VITALS: Ht 165.1 cm; Wt 82.6 kg
[~2022-12-13] MED LIST changes: +Percocet 325 MG1 TAB PO
[2022-12-13 10:50] VITALS: BP 85/48
[2022-12-13 11:47] VITALS: BP 84/51
[2022-12-13 12:02] VITALS: BP 90/60
[2022-12-13 12:17] VITALS: BP 97/61
[2022-12-13 13:44] VITALS: BP 84/51
== END | disposition home or self-care (01) ==
LOC: SDC 12-08 08:45
PROVIDERS: ATTEND Obstetrics & Gynecology
DX: D07.1 Carcinoma in situ of vulva (principal); I10 Essential (primary) hypertension; F41.9 Anxiety disorder, unspecified; E03.9 Hypothyroidism, unspecified; J44.9 Chronic obstructive pulmonary disease, unspecified; I25.10 Atherosclerotic heart disease of native coronary artery without angina pectoris; E78.00 Pure hypercholesterolemia, unspecified; F17.210 Nicotine dependence, cigarettes, uncomplicated; K21.9 Gastro-esophageal reflux disease without esophagitis; Z79.899 Other long term (current) drug therapy

== ENCOUNTER → 2022-12-28 | Outpatient (CLI) | payer OTHER | END | disposition home or self-care (01) | LOC: MAMMO 12-14 01:19 | PROVIDERS: ATTEND Obstetrics & Gynecology | DX: Z12.31 Encounter for screening mammogram for malignant neoplasm of breast (principal); N64.9 Disorder of breast, unspecified ==

== ENCOUNTER → 2023-08-04 | Outpatient (CLI) | payer OTHER ==
[2023-08-04 15:14] LABS: BASO % 0.5 % (0.0-1.0); EOS # 0.2 10*3/uL (0.0-0.4); EOS % 3.3 % (1.0-4.0); HEMATOCRIT 40.3 % (37.0-47.0); LYMPH % 31.5 % (27.0-41.0); MEAN CELL VOLUME 92.6 fl (81.0-99.0); MEAN CORPUSCULAR HGB 30.6 pg (27.0-31.0); MONO # 0.6 10*3/uL (0.1-1.0); NEUT # 3.5 10*3/uL (2.3-7.9); NEUT % 54.4 % (47.0-73.0); PLATELET COUNT AUTOMATED 277 10*3/uL (130-400); RED BLOOD COUNT 4.35 10*6/uL (4.10-5.10); RED CELL DISTRI WIDTH 13.2 % (0-14.5); WHITE BLOOD COUNT 6.4 10*3/uL (4.8-10.8)
[2023-08-04 15:26] LABS: BILIRUBIN Negative (Negative); BLOOD Negative (Negative); CLARITY Clear (Clear); COLOR Yellow (Yellow); GLUCOSE Negative (Negative); KETONE Negative (Negative); LEUKO ESTERASE Negative (Negative); NITRITE Negative (Negative); SPECIFIC GRAVITY 1.015 (1.001-1.030); UROBILINOGEN 0.2 E.U./dl (0.0-1.0)
[2023-08-04 15:42] LABS: ALKALINE PHOSPHATASE 79 U/L (46-116); BUN 7 mg/dl (9-23); CHLORIDE 108 mmol/L (98-107); CHOLESTEROL 207 mg/dL (<200); GAMMA GLUTAMYL TRANSPEPTIDASE 30 U/L (0-73); LDL CHOLESTEROL 114 mg/dL (9-159); POTASSIUM 4.3 mmol/L (3.4-5.1); SGPT/ALT 15 U/L (5-49); THYROXINE (T4) TOTAL 7.2 ug/dl (4.5-10.9); TOTAL PROTEIN 6.6 gm/dL (6.0-8.0); TRIGLYCERIDES 103 mg/dl (<150)
[2023-08-04 15:43] LABS: VITAMIN D, 25-HYDROXY 45.1 ng/mL (30-100)
[2023-08-04 16:17] LABS: BACTERIA 2+
== END | disposition home or self-care (01) ==
LOC: LAB 14:38
PROVIDERS: ATTEND Family Medicine
DX: E78.5 Hyperlipidemia, unspecified (principal); E55.9 Vitamin D deficiency, unspecified; R79.89 Other specified abnormal findings of blood chemistry; R53.83 Other fatigue; R74.8 Abnormal levels of other serum enzymes

== ENCOUNTER → 2023-08-26 | Outpatient (CLI) | payer OTHER | END | disposition home or self-care (01) | LOC: RAD 08-05 00:24 | PROVIDERS: ATTEND Family Medicine | DX: M85.852 Other specified disorders of bone density and structure, left thigh (principal); M81.0 Age-related osteoporosis without current pathological fracture ==

== ENCOUNTER 2023-09-30 18:51 | Emergency (ER) | payer OTHER ==
[~2023-09-30] VITALS: Ht 167.6 cm; Wt 83.9 kg
[2023-09-30 18:54] VITALS: BP 150/90
== END 2023-09-30 22:16 | disposition home or self-care (01) ==
LOC: ED 18:51
DX: S61.412A Laceration without foreign body of left hand, initial encounter (principal); J44.9 Chronic obstructive pulmonary disease, unspecified; I10 Essential (primary) hypertension; I25.10 Atherosclerotic heart disease of native coronary artery without angina pectoris; K21.9 Gastro-esophageal reflux disease without esophagitis; F41.9 Anxiety disorder, unspecified; E78.00 Pure hypercholesterolemia, unspecified; Z98.890 Other specified postprocedural states; Z98.51 Tubal ligation status; Z90.89 Acquired absence of other organs; Z90.49 Acquired absence of other specified parts of digestive tract; Z95.5 Presence of coronary angioplasty implant and graft; W26.0XXA Contact with knife, initial encounter; Y93.89 Activity, other specified; Y92.89 Other specified places as the place of occurrence of the external cause; Y99.8 Other external cause status

== ENCOUNTER 2023-10-02 10:41 | Emergency (ER) | payer OTHER ==
[~2023-10-02] VITALS: Ht 165.1 cm; Wt 81.6 kg
[2023-10-02 10:50] VITALS: BP 120/75
[2023-10-02] MEDS ORDERED: ROSUVASTATIN CA20 MG PO (11:01)
[2023-10-02] MEDS ORDERED: LEVOTHYROXINE125 MCG PO (11:01)
[2023-10-02 11:17] LABS: BASO % 0.5 % (0.0-1.0); EOS # 0.1 10*3/uL (0.0-0.4); EOS % 1.7 % (1.0-4.0); HEMATOCRIT 40.2 % (37.0-47.0); LYMPH # 1.8 10*3/uL (1.3-4.4); LYMPH % 21.4 % (27.0-41.0); MEAN CELL VOLUME 93.5 fl (81.0-99.0); MEAN CORPUSCULAR HGB 30.7 pg (27.0-31.0); MEAN CORPUSCULAR HGB CONC 32.8 g/dl (33.0-37.0); MONO # 1.1 10*3/uL (0.1-1.0); NEUT # 5.4 10*3/uL (2.3-7.9); NEUT % 63.2 % (47.0-73.0); PLATELET COUNT AUTOMATED 301 10*3/uL (130-400); RED CELL DISTRI WIDTH 13.8 % (0-14.5); WHITE BLOOD COUNT 8.5 10*3/uL (4.8-10.8)
[2023-10-02 11:38] LABS: ALKALINE PHOSPHATASE 74 U/L (46-116); BUN 7 mg/dl (9-23); CHLORIDE 107 mmol/L (98-107); POTASSIUM 4.1 mmol/L (3.4-5.1); SGPT/ALT 9 U/L (5-49); TOTAL PROTEIN 6.8 gm/dL (6.0-8.0)
[2023-10-02] MEDS ORDERED: ONDANSETRON4 MG SL (14:39)
[2023-10-02] MEDS ORDERED: CEPHALEXIN500 M1 PO (14:39)
[2023-10-02] MEDS ORDERED: VIBRAMYCIN100 MG PO (14:39)
== END 2023-10-02 15:07 | disposition home or self-care (01) ==
LOC: ED 10:41
PROVIDERS: Nurse Practitioner Family
DX: L03.114 Cellulitis of left upper limb (principal); J44.9 Chronic obstructive pulmonary disease, unspecified; I10 Essential (primary) hypertension; I25.10 Atherosclerotic heart disease of native coronary artery without angina pectoris; K21.9 Gastro-esophageal reflux disease without esophagitis; F41.9 Anxiety disorder, unspecified; E78.00 Pure hypercholesterolemia, unspecified; Z95.5 Presence of coronary angioplasty implant and graft; Z98.51 Tubal ligation status; Z98.890 Other specified postprocedural states; Z90.89 Acquired absence of other organs; Z90.49 Acquired absence of other specified parts of digestive tract; F17.210 Nicotine dependence, cigarettes, uncomplicated

== ENCOUNTER → 2023-10-04 | Outpatient (CLI) | payer OTHER ==
[~2023-10-04] MED LIST changes: +CEPHALEXIN500 M1 PO; +LEVOTHYROXINE125 MCG PO; +ONDANSETRON4 MG SL; +ROSUVASTATIN CA20 MG PO; +VIBRAMYCIN100 MG PO
== END | disposition home or self-care (01) ==
LOC: WOUNDCARE 05:55
PROVIDERS: ATTEND Nurse Practitioner Family
DX: S61.412A Laceration without foreign body of left hand, initial encounter (principal); L03.114 Cellulitis of left upper limb; R22.32 Localized swelling, mass and lump, left upper limb; I10 Essential (primary) hypertension; E78.00 Pure hypercholesterolemia, unspecified; E03.9 Hypothyroidism, unspecified; Z87.891 Personal history of nicotine dependence; X58.XXXA Exposure to other specified factors, initial encounter; Y93.89 Activity, other specified; Y92.89 Other specified places as the place of occurrence of the external cause; Y99.8 Other external cause status

== ENCOUNTER → 2023-10-12 | Outpatient (CLI) | payer OTHER | END | disposition home or self-care (01) | LOC: MRI 10-07 02:54 → WOUNDCARE 01:37 → MRI 13:00 | PROVIDERS: ATTEND Nurse Practitioner Family | DX: M67.432 Ganglion, left wrist (principal); M19.032 Primary osteoarthritis, left wrist; R22.32 Localized swelling, mass and lump, left upper limb; L03.114 Cellulitis of left upper limb; Z09 Encounter for follow-up examination after completed treatment for conditions other than malignant neoplasm; D07.1 Carcinoma in situ of vulva; Z79.899 Other long term (current) drug therapy; Z87.891 Personal history of nicotine dependence; Z98.890 Other specified postprocedural states; I10 Essential (primary) hypertension; E11.9 Type 2 diabetes mellitus without complications; I63.9 Cerebral infarction, unspecified; I25.2 Old myocardial infarction; E78.5 Hyperlipidemia, unspecified; E03.9 Hypothyroidism, unspecified; J44.9 Chronic obstructive pulmonary disease, unspecified ==

== ENCOUNTER → 2023-10-18 | Outpatient (CLI) | payer OTHER | END | disposition home or self-care (01) | LOC: WOUNDCARE 01:57 | PROVIDERS: ATTEND Nurse Practitioner Family | DX: S61.412D Laceration without foreign body of left hand, subsequent encounter (principal); L03.114 Cellulitis of left upper limb; R22.32 Localized swelling, mass and lump, left upper limb; E78.00 Pure hypercholesterolemia, unspecified; E03.9 Hypothyroidism, unspecified; I10 Essential (primary) hypertension; Z87.891 Personal history of nicotine dependence; Z95.818 Presence of other cardiac implants and grafts; X58.XXXD Exposure to other specified factors, subsequent encounter ==

== ENCOUNTER → 2024-04-17 | Outpatient (CLI) | payer OTHER | END | disposition home or self-care (01) | LOC: RAD 14:14 | PROVIDERS: ATTEND Family Medicine | DX: M47.817 Spondylosis without myelopathy or radiculopathy, lumbosacral region (principal); M25.522 Pain in left elbow ==

== ENCOUNTER → 2024-05-03 | Outpatient (CLI) | payer OTHER ==
[~2024-05-03] MED LIST changes: +IOHEXOL 300 MG/ML 100 ML VIAL IV ONE; +IOHEXOL 300 MG/ML 100 ML VIAL ONE
== END | disposition home or self-care (01) ==
LOC: CT 05-02 14:00
PROVIDERS: ATTEND Family Medicine
DX: S00.93XA Contusion of unspecified part of head, initial encounter (principal); G93.89 Other specified disorders of brain; X58.XXXA Exposure to other specified factors, initial encounter; Y93.89 Activity, other specified; Y92.89 Other specified places as the place of occurrence of the external cause; Y99.8 Other external cause status

== ENCOUNTER → 2024-05-24 | Outpatient (CLI) | payer OTHER ==
[~2024-05-24] MED LIST changes: -IOHEXOL 300 MG/ML 100 ML VIAL IV ONE; -IOHEXOL 300 MG/ML 100 ML VIAL ONE
[2024-05-24 14:11] LABS: BASO % 0.6 % (0.0-1.0); EOS # 0.2 10*3/uL (0.0-0.4); EOS % 2.7 % (1.0-4.0); HEMATOCRIT 42.8 % (37.0-47.0); LYMPH # 1.5 10*3/uL (1.3-4.4); LYMPH % 24.2 % (27.0-41.0); MEAN CELL VOLUME 93.2 fl (81.0-99.0); MEAN CORPUSCULAR HGB 31.4 pg (27.0-31.0); MEAN CORPUSCULAR HGB CONC 33.6 g/dl (33.0-37.0); MONO # 0.6 10*3/uL (0.1-1.0); MONO % 9.5 % (3.0-9.0); NEUT # 3.9 10*3/uL (2.3-7.9); NEUT % 62.7 % (47.0-73.0); PLATELET COUNT AUTOMATED 261 10*3/uL (130-400); RED BLOOD COUNT 4.59 10*6/uL (4.10-5.10); RED CELL DISTRI WIDTH 12.6 % (0-14.5); RETICULOCYTE % 1.46 % (0.50-2.50); WHITE BLOOD COUNT 6.2 10*3/uL (4.8-10.8)
[2024-05-24 14:20] LABS: BILIRUBIN 1+ (Negative); BLOOD Negative (Negative); CLARITY Cloudy (Clear); COLOR Dark Yellow (Yellow); GLUCOSE Negative (Negative); KETONE Trace (Negative); LEUKO ESTERASE 2+ (Negative); NITRITE Negative (Negative); PH 5.5 (4.5-8.0)
[2024-05-24 14:30] LABS: BACTERIA 1+; MUCOUS 1+; RBC 0-2 rbc/hpf (0-2); WBC 21-30 wbc/hpf (0-5)
[2024-05-24 14:38] LABS: ALKALINE PHOSPHATASE 81 U/L (46-116); BUN 6 mg/dl (9-23); CHLORIDE 103 mmol/L (98-107); CHOLESTEROL 219 mg/dL (<200); GAMMA GLUTAMYL TRANSPEPTIDASE 47 U/L (0-73); LDL CHOLESTEROL 91 mg/dL (9-159); POTASSIUM 3.9 mmol/L (3.4-5.1); SGPT/ALT 17 U/L (5-49); TOTAL PROTEIN 6.9 gm/dL (6.0-8.0); TRIGLYCERIDES 96 mg/dl (<150)
[2024-05-24 14:52] LABS: VITAMIN D, 25-HYDROXY 32.9 ng/mL (30-100)
== END | disposition home or self-care (01) ==
LOC: LAB 13:46
PROVIDERS: ATTEND Family Medicine
DX: R53.83 Other fatigue (principal); R06.02 Shortness of breath; R79.89 Other specified abnormal findings of blood chemistry; E78.5 Hyperlipidemia, unspecified; E55.9 Vitamin D deficiency, unspecified

== ENCOUNTER → 2024-06-27 | Outpatient (CLI) | payer OTHER ==
[~2024-06-27] MED LIST changes: +GADOTERATE MEGLUMINE 10 MMOL/20 ML VIAL IV ONE
== END | disposition home or self-care (01) ==
LOC: MRI 06-01 14:00
PROVIDERS: ATTEND Anesthesiology Pain Medicine
DX: M48.061 Spinal stenosis, lumbar region without neurogenic claudication (principal); M47.896 Other spondylosis, lumbar region

== ENCOUNTER → 2024-06-28 | Outpatient (CLI) | payer OTHER ==
[~2024-06-28] MED LIST changes: -GADOTERATE MEGLUMINE 10 MMOL/20 ML VIAL IV ONE
== END | disposition home or self-care (01) ==
LOC: US 06-11 14:00
PROVIDERS: ATTEND Family Medicine
DX: E04.1 Nontoxic single thyroid nodule (principal); E03.9 Hypothyroidism, unspecified; M79.604 Pain in right leg; M79.605 Pain in left leg

== ENCOUNTER → 2024-07-26 | Outpatient (CLI) | payer OTHER | END | disposition home or self-care (01) | LOC: RAD 02:23 | PROVIDERS: ATTEND Family Medicine | DX: M19.011 Primary osteoarthritis, right shoulder (principal); M25.711 Osteophyte, right shoulder; M25.511 Pain in right shoulder ==

== ENCOUNTER → 2024-08-03 | Outpatient (CLI) | payer OTHER | END | disposition home or self-care (01) | LOC: MRI 13:00 | PROVIDERS: ATTEND Family Medicine | DX: M19.011 Primary osteoarthritis, right shoulder (principal); M75.51 Bursitis of right shoulder; M25.411 Effusion, right shoulder; M25.511 Pain in right shoulder; M75.81 Other shoulder lesions, right shoulder ==

== ENCOUNTER → 2024-08-22 | Outpatient (CLI) | payer OTHER | END | disposition home or self-care (01) | LOC: LAB 17:23 | PROVIDERS: ATTEND Chiropractor Orthopedic | DX: M47.817 Spondylosis without myelopathy or radiculopathy, lumbosacral region (principal); M51.379 Other intervertebral disc degeneration, lumbosacral region without mention of lumbar back pain or lower extremity pain ==

== ENCOUNTER → 2024-09-25 | Outpatient (CLI) | payer OTHER | END | disposition home or self-care (01) | LOC: MAMMO 00:51 | PROVIDERS: ATTEND Family Medicine | DX: Z12.31 Encounter for screening mammogram for malignant neoplasm of breast (principal) ==